=== PATIENT | male | born 1990 | race Caucasian/White ===

== ENCOUNTER 2017-01-07 08:07 | Emergency (ER) | payer OTHER ==
[~2017-01-07] VITALS: Ht 177.8 cm; Wt 77.7 kg
[2017-01-07 08:09] VITALS: BP 133/76
[2017-01-07] MEDS ORDERED: CELE1CAP4 PO (08:24)
[2017-01-07] MEDS ORDERED: WELLTAB40 PO (08:24)
[2017-01-07] MEDS ORDERED: FLUO10TA2 PO (08:24)
[2017-01-07] MEDS ORDERED: VIAG100T PO (08:24)
[2017-01-07] MEDS ORDERED: ROBA500T PO (08:49)
[2017-01-07] MEDS ORDERED: IBUP80TA PO (08:49)
== END 2017-01-07 09:01 | disposition home or self-care (01) ==
LOC: M ED 08:07
DX: M51.26 Other intervertebral disc displacement, lumbar region (principal); F17.200 Nicotine dependence, unspecified, uncomplicated; Z79.899 Other long term (current) drug therapy